=== PATIENT | male | born 1985 | race Caucasian/White ===

== ENCOUNTER 2018-08-31 11:34 | Emergency (ER) | payer OTHER ==
[~2018-08-31] VITALS: Ht 182.9 cm; Wt 132.5 kg
[2018-08-31 11:51] VITALS: BP 143/74; TEMP 97.5
[2018-08-31] MEDS ORDERED: FLONASE NASAL S16 GM NS (12:48)
[2018-08-31] MEDS ORDERED: AMOXICILLIN875 MG PO (12:48)
[2018-08-31] MEDS ORDERED: CORTISPORIN OTI10 ML OT (12:48)
[2018-08-31 13:11] VITALS: PULSE 62
== END 2018-08-31 13:12 | disposition home or self-care (01) ==
LOC: COL.ER 11:34
DX: H60.501 Unspecified acute noninfective otitis externa, right ear (principal); J01.90 Acute sinusitis, unspecified; Z90.49 Acquired absence of other specified parts of digestive tract